=== PATIENT | male | born 1990 | race Caucasian/White ===

== ENCOUNTER 2017-08-18 07:03 | Emergency (ER) | payer OTHER ==
[~2017-08-18] VITALS: Ht 185.4 cm; Wt 79.4 kg
[2017-08-18] MEDS ORDERED: ZOFRAN ODT4 MG PO (09:26)
[2017-08-18] MEDS ORDERED: CONSTULOSE10 GM/15 M PO (10:14)
[2017-08-18] MEDS ORDERED: IBUPROFEN600 MG PO (10:14)
== END 2017-08-18 10:23 | disposition home or self-care (01) ==
LOC: ED 07:03
DX: K75.9 Inflammatory liver disease, unspecified (principal); F15.90 Other stimulant use, unspecified, uncomplicated; Z88.0 Allergy status to penicillin
CPT/HCPCS: 74176; 76705; 80053; 81001; 83690; 85025; 85610; 85651; 86704; 86706; 86709; 86803; 87340; 96361; 96374; 96375; 99284; J1885; J2270; J2405; J7030

== ENCOUNTER 2018-10-06 20:19 | Emergency (ER) | payer OTHER ==
[~2018-10-06] VITALS: Ht 185.4 cm; Wt 114.0 kg
[~2018-10-06 20:19] MED LIST: CONSTULOSE10 GM/15 M PO; IBUPROFEN600 MG PO; ZOFRAN ODT4 MG PO
--- OUTSIDE RECORDS SUMMARY | 2018-10-06 20:22 | XMS ---
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 Em VISIT COUNT (12 MO.) 1 [facility] Vivienne Velez 1 ESTELA Fournier TOTAL 2 NOTE: Visits indicate total known visits. ED/UCC VISIT TRACKING (12 MO.) 10/06/2018 20:19 [facility] [place] TYPE: Emergency COMPLAINT: - LEG NUMBNESS 10/22/2017 12:54 [facility] TYPE: Emergency DIAGNOSES: - Arm Pain - Procedure and treatment not carried out due to patient leaving prior to being seen by health care provider INPATIENT VISIT TRACKING (12 MO.) No inpatient visits to display in this time frame [email or web address]
[2018-10-06] MEDS ORDERED: GABAPENTIN600 MG PO ×2 (21:31→21:34)
[2018-10-06] MEDS ORDERED: PRAZOSIN HCL2 MG PO (21:32)
[2018-10-06] MEDS ORDERED: TRAZODONE HCL150 MG PO (21:33)
== END 2018-10-06 22:50 | disposition home or self-care (01) ==
LOC: ED 20:19
DX: M54.9 Dorsalgia, unspecified (principal); F90.9 Attention-deficit hyperactivity disorder, unspecified type; F31.9 Bipolar disorder, unspecified; F41.0 Panic disorder [episodic paroxysmal anxiety]; Z87.891 Personal history of nicotine dependence; Z88.0 Allergy status to penicillin; Z79.899 Other long term (current) drug therapy
CPT/HCPCS: 99283

== ENCOUNTER 2018-12-05 11:15 | Emergency (ER) | payer OTHER ==
[~2018-12-05] VITALS: Ht 185.4 cm; Wt 114.0 kg
[~2018-12-05 11:15] MED LIST changes: +GABAPENTIN600 MG PO; +PRAZOSIN HCL2 MG PO; +TRAZODONE HCL150 MG PO
--- OUTSIDE RECORDS SUMMARY | 2018-12-05 11:18 | XMS ---
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 Em VISIT COUNT (12 MO.) 2 ESTELA Fournier TOTAL 2 NOTE: Visits indicate total known visits. ED/UCC VISIT TRACKING (12 MO.) 12/05/2018 11:16 [facility] [place] TYPE: Emergency COMPLAINT: - HEAD PAIN,INJURY 10/06/2018 20:19 [facility]EL[facility] [place] TYPE: Emergency COMPLAINT: - LEG NUMBNESS DIAGNOSES: - Bipolar disorder, unspecified - Dorsalgia, unspecified - Other shelter (current) drug therapy - Panic disorder [episodic paroxysmal anxiety] - Allergy status to penicillin - Anesthesia of skin - Personal history of nicotine dependence - Attention-deficit hyperactivity disorder, unspecified type INPATIENT VISIT TRACKING (12 MO.) No inpatient visits to display in this time frame [email or web address]
== END 2018-12-05 14:12 | disposition home or self-care (01) ==
LOC: ED 11:15
DX: S02.40CA Maxillary fracture, right side, initial encounter for closed fracture (principal); S02.609A Fracture of mandible, unspecified, initial encounter for closed fracture; Y04.8XXA Assault by other bodily force, initial encounter; F90.9 Attention-deficit hyperactivity disorder, unspecified type; F31.9 Bipolar disorder, unspecified; Z88.0 Allergy status to penicillin; Z79.899 Other long term (current) drug therapy
CPT/HCPCS: 70486; 99283-25

== ENCOUNTER 2020-06-03 09:38 | Emergency (ER) | payer OTHER ==
[~2020-06-03] VITALS: Ht 185.4 cm; Wt 104.5 kg
[~2020-06-03 09:38] MED LIST changes: +EFFEXOR XR150 MG PO; +GUAIFENESIN AC473 ML PO; +REMERON30 M1 PO
[2020-06-03] MEDS ORDERED: BUPRENO-NALOX1 EACH SL (09:52)
[2020-06-03] MEDS ORDERED: BUPRENORP-NALO1 EAC1 SL (09:52)
[2020-06-03] MEDS ORDERED: PRAZOSIN HCL2 MG PO (09:52)
== END 2020-06-03 12:13 | disposition home or self-care (01) ==
LOC: ED 09:38
DX: R31.9 Hematuria, unspecified (principal); R10.31 Right lower quadrant pain; F31.9 Bipolar disorder, unspecified; F90.9 Attention-deficit hyperactivity disorder, unspecified type; F41.0 Panic disorder [episodic paroxysmal anxiety]; F17.200 Nicotine dependence, unspecified, uncomplicated; Z88.0 Allergy status to penicillin; Z79.899 Other long term (current) drug therapy
CPT/HCPCS: 74176; 80053; 81001; 85025; 96374; 96375; 96376; 99284-25; J1885; J2405

== ENCOUNTER 2020-06-09 15:32 | Emergency (ER) | payer OTHER ==
[~2020-06-09] VITALS: Ht 185.4 cm; Wt 97.7 kg
[~2020-06-09 15:32] MED LIST changes: +BUPRENO-NALOX1 EACH SL; +BUPRENORP-NALO1 EAC1 SL
--- OUTSIDE RECORDS SUMMARY | 2020-06-09 15:36 | XMS ---
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 Em VISIT COUNT (12 MO.) 3 Patrick Waldron Yovani [address] [place] [address] TOTAL 6 NOTE: Visits indicate total known visits. ED/UCC VISIT TRACKING (12 MO.) 06/09/2020 15:33 [facility]EL[facility] [place] TYPE: Emergency COMPLAINT: - FALL, BACK PAIN, BILAT ANKLE PAIN 06/03/2020 09:39 [facility]EL[facility] [place] TYPE: Emergency COMPLAINT: - BLOOD IN URINE DIAGNOSES: - Bipolar disorder, unspecified - Attention-deficit hyperactivity disorder, unspecified type - Hematuria, unspecified - Nicotine dependence, unspecified, uncomplicated - Other retirement (current) drug therapy - Right lower quadrant pain - Allergy status to penicillin - Panic disorder [episodic paroxysmal anxiety] 12/15/2019 04:33 Patrick Chivo [facility] [place] TYPE: Emergency DIAGNOSES: - Emesis - Dizziness - dizziness/vomiting - Dizziness and giddiness 12/11/2019 06:36 Patrick [facility] [place] TYPE: Emergency DIAGNOSES: - Flank Pain - Constipation, unspecified - Other stimulant abuse, uncomplicated - Unspecified abdominal pain - Kidney Pain - Chronic prostatitis - Calculus of ureter - Contusion of left hand, initial encounter 12/01/2019 16:39 Patrick [facility] [place] TYPE: Emergency DIAGNOSES: - Abdominal Pain - Dehydration - Calculus of ureter - Constipation, unspecified - Unspecified renal colic 08/25/2019 03:45 [facility] [place] TYPE: Emergency COMPLAINT: - COUGH DIAGNOSES: - Acute bronchitis, unspecified - Cough INPATIENT VISIT TRACKING (12 MO.) No inpatient visits to display in this time frame [email or web address]
[2020-06-09] MEDS ORDERED: NAPROSYN500 MG PO (17:10)
[2020-06-09] MEDS ORDERED: CRUTCH1 EACH (17:12)
== END 2020-06-09 17:25 | disposition home or self-care (01) ==
LOC: ED 15:32
DX: S93.402A Sprain of unspecified ligament of left ankle, initial encounter (principal); S93.401A Sprain of unspecified ligament of right ankle, initial encounter; M54.5 Low back pain; F31.9 Bipolar disorder, unspecified; F41.0 Panic disorder [episodic paroxysmal anxiety]; F90.9 Attention-deficit hyperactivity disorder, unspecified type; F17.200 Nicotine dependence, unspecified, uncomplicated; Z88.0 Allergy status to penicillin; Z79.899 Other long term (current) drug therapy; V00.131A Fall from skateboard, initial encounter
CPT/HCPCS: 72100; 73610; 73630; 99284-25

== ENCOUNTER 2020-06-14 20:43 | Emergency (ER) | payer OTHER ==
[~2020-06-14] VITALS: Ht 185.4 cm; Wt 95.4 kg
[~2020-06-14 20:43] MED LIST changes: +CRUTCH1 EACH; +NAPROSYN500 MG PO
--- OUTSIDE RECORDS SUMMARY | 2020-06-14 20:46 | XMS ---
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 Care History Medical/Surgical 06/10/2020 [facility] - PATIENT NO LONGER AT [facility] OF 06/09/2020. - PAST LAST APT WITH PCP CAROL ARELLANO WAS ON 06/04/20. - PATIENT HAS A SCHEDULED FOLLOW UP APT WITH CAROL ARELLANO ON PLEASE LET PATIENT KNOW IF SEEN IN ED \T\nbsp;\T\nbsp;\T\nbsp;\T\nbsp;\ T\nbsp;\T\nbsp;\T\nbsp;\T\nbsp;\T\nbsp;\T\nbsp;\T\nbsp;\T\nbsp;\T\nbsp;\T\nbsp; \T\nbsp;\T\nbsp;\T\nbsp;\T\nbsp;\T\nbsp;\T\nbsp;\T\nbsp;\T\nbsp;\T\nbsp;\T\ nbsp;\T\nbsp;\T\nbsp;\T\nbsp;\T\nbsp; PATIENT DOES NOT HAVE A CONTACT # AND OR ADDRESS LISTED. 06/10/2020 [facility] \T\middot;\T\nbsp; PATIENT WOULD BENEFIT FROM [facility]-PLEASE DISCUSS \T\middot;\T\nbsp; PLEASE CONTACT [facility]- IF PATIENT ACCEPTS SERVICES- [phone] \T\middot;\T\nbsp; [facility] CAN PROVIDE PATIENT WITH GOODS LAYER AND HELP WITH COMMUNITY [employer]OURCES E.D. VISIT COUNT (12 MO.) 3 Patrick Crump 4 [facility] TOTAL 7 NOTE: Visits indicate total known visits. ED/UCC VISIT TRACKING (12 MO.) 06/14/2020 20:43 [facility] [place] TYPE: Emergency COMPLAINT: - SHOULDER KNEE PAIN 06/09/2020 15:33 [facility] [place] TYPE: Emergency COMPLAINT: - FALL, BACK PAIN, BILAT ANKLE PAIN DIAGNOSES: - Allergy status to penicillin - Panic disorder [episodic paroxysmal anxiety] - Fall from skateboard, initial encounter - Pain in left ankle and joints of left foot - Low back pain - Sprain of unspecified ligament of left ankle, initial encount - Attention-deficit hyperactivity disorder, unspecified type - Bipolar disorder, unspecified - Nicotine dependence, unspecified, uncomplicated - 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 - Sprain of unspecified ligament of right ankle, initial encoun 06/03/2020 09:39 [facility] [place] TYPE: Emergency COMPLAINT: - BLOOD IN URINE DIAGNOSES: - Bipolar disorder, unspecified - Attention-deficit hyperactivity disorder, unspecified type - Hematuria, unspecified - Nicotine dependence, unspecified, uncomplicated - Other detention (current) drug therapy - Right lower quadrant pain - Allergy status to penicillin - Panic disorder [episodic paroxysmal anxiety] 12/15/2019 04:33 Patrick [facility] [place] TYPE: Emergency DIAGNOSES: - Emesis - Dizziness - dizziness/vomiting - Dizziness and giddiness 12/11/2019 06:36 Patrick [facility] [place] TYPE: Emergency DIAGNOSES: - Flank Pain - Constipation, unspecified - Other stimulant abuse, uncomplicated - Unspecified abdominal pain - Kidney Pain - Chronic prostatitis - Calculus of ureter - Contusion of left hand, initial encounter 12/01/2019 16:39 Patrick Crump [facility] [place] TYPE: Emergency DIAGNOSES: - Abdominal Pain - Dehydration - Calculus of ureter - Constipation, unspecified - Unspecified renal colic 08/25/2019 03:45 [facility] [place] TYPE: Emergency COMPLAINT: - COUGH DIAGNOSES: - Acute bronchitis, unspecified - Cough INPATIENT VISIT TRACKING (12 MO.) No inpatient visits to display in this time frame [email or web address]
== END 2020-06-14 21:40 | disposition home or self-care (01) ==
LOC: ED 20:43
DX: Z04.3 Encounter for examination and observation following other accident (principal); F15.90 Other stimulant use, unspecified, uncomplicated; F90.9 Attention-deficit hyperactivity disorder, unspecified type; F31.9 Bipolar disorder, unspecified; F17.200 Nicotine dependence, unspecified, uncomplicated; Z88.0 Allergy status to penicillin; Z79.899 Other long term (current) drug therapy; W19.XXXA Unspecified fall, initial encounter
CPT/HCPCS: 99283

== ENCOUNTER 2020-07-17 04:28 | Emergency (ER) | payer OTHER ==
[~2020-07-17] VITALS: Ht 185.4 cm; Wt 108.9 kg
[2020-07-17] MEDS ORDERED: NORCO 5-325 TA1 EACH PO (05:48)
== END 2020-07-17 11:40 | disposition home or self-care (01) ==
LOC: ED 04:28 → EDBD 04:29 → ED 11:40
DX: S02.611A Fracture of condylar process of right mandible, initial encounter for closed fracture (principal); S01.81XA Laceration without foreign body of other part of head, initial encounter; F17.200 Nicotine dependence, unspecified, uncomplicated; Z88.0 Allergy status to penicillin; W01.198A Fall on same level from slipping, tripping and stumbling with subsequent striking against other object, initial encounter
CPT/HCPCS: 12013; 70450; 70486; 99284-25

== ENCOUNTER 2025-07-06 17:30 | Emergency (ER) | payer OTHER ==
[~2025-07-06] VITALS: Ht 188 cm; Wt 80.8 kg
[~2025-07-06 17:30] MED LIST changes: +NORCO 5-325 TA1 EACH PO
[2025-07-06] MEDS ORDERED: LORazepam 1 MG TAB PO ONE (17:45)
[2025-07-06] MEDS ORDERED: SODIUM CHLORIDE 0.9% 1,000 ML IV PRN (18:30)
[2025-07-06] MEDS ORDERED: OLANZapine 10 MG TABDIS PO ONE (18:30)
[2025-07-06] MEDS ORDERED: LORazepam 2 MG/ML VIAL IM ONE (18:45)
[2025-07-06 19:20] LABS: BASOPHILS 0.6 % (0.2-1.2); EOSINOPHILS 1.5 % (0.8-7.0); LYMPHOCYTES 15.5 % (21.8-53.1); MCH 29.3 PG (25.7-32.2); MCHC 34.2 g/dL (32.3-36.5); MCV 85.6 fL (79.0-92.2); MONOCYTES 12.3 % (5.3-12.2); NEUTROPHILS 69.5 % (34.0-67.9); RBC 4.51 M/uL (4.63-6.08)
[2025-07-06 19:43] LABS: ALT (SGPT) 58 U/L (14-59); AST (SGOT) 90 U/L (15-37); GLOMERULAR FILTRATION RATE,EST 73 mL/min (>60); PROTEIN, TOTAL 6.5 g/dL (6.4-8.2); TSH, 3RD GENERATION 2.081 uIU/mL (0.358-3.740); UREA NITROGEN 6 mg/dL (7-18)
[2025-07-07 08:53] VITALS: BP 118/76
== END 2025-07-07 08:51 | disposition home or self-care (01) ==
LOC: EDBD 17:30 → ED 17:30
PROVIDERS: Emergency Medicine
DX: F15.959 Other stimulant use, unspecified with stimulant-induced psychotic disorder, unspecified (principal)
CPT/HCPCS: 36415; 80053; 80307; 84443; 85025; 96372; 99285; A9270; A9270-GY; G0480; J1200; J2060